=== PATIENT | female | born 2000 | race Two or more races ===

== ENCOUNTER → 2021-01-03 | Emergency (ER) | payer MEDICAID ==
[~2021-01-03] VITALS: Ht 167.6 cm; Wt 62.8 kg
[~2021-01-03] MED LIST: rabies immune globulin/PF 150 unit/ml inj IMVAC STA; rabies vaccine (PCEC)/PF 2.5 unit kit IMVAC ONE
[2021-01-03 11:45] VITALS: BP 146/91
== END | disposition home or self-care (01) ==
LOC: ER 11:18
DX: S81.851A Open bite, right lower leg, initial encounter (principal); W55.81XA Bitten by other mammals, initial encounter; Y92.009 Unspecified place in unspecified non-institutional (private) residence as the place of occurrence of the external cause; S81.831D Puncture wound without foreign body, right lower leg, subsequent encounter; Z88.0 Allergy status to penicillin; Z20.3 Contact with and (suspected) exposure to rabies
CPT/HCPCS: 90375; 90675; 99281; 99282

== ENCOUNTER 2021-01-06 15:49 | Emergency (ER) | payer MEDICAID ==
[~2021-01-06] VITALS: Ht 167.6 cm; Wt 63.6 kg
[2021-01-06 15:59] VITALS: BP 134/85
[2021-01-06] MEDS ORDERED: rabies vaccine (PCEC)/PF 2.5 unit kit IMVAC ONE (17:20)
== END 2021-01-06 17:33 | disposition home or self-care (01) ==
LOC: ER 15:50
DX: Z23 Encounter for immunization (principal); Z88.0 Allergy status to penicillin
CPT/HCPCS: 90471; 90675; 99281

== ENCOUNTER 2021-01-10 14:36 | Emergency (ER) | payer MEDICAID ==
[~2021-01-10] VITALS: Ht 167.6 cm; Wt 64.0 kg
[2021-01-10 14:47] VITALS: BP 116/81
[2021-01-10] MEDS ORDERED: rabies vaccine (PCEC)/PF 2.5 unit kit IMVAC ONE (15:10)
== END 2021-01-10 16:18 | disposition home or self-care (01) ==
LOC: ER 14:36
DX: S81.831D Puncture wound without foreign body, right lower leg, subsequent encounter (principal); Z23 Encounter for immunization; Z20.3 Contact with and (suspected) exposure to rabies; Z88.0 Allergy status to penicillin; W57.XXXD Bitten or stung by nonvenomous insect and other nonvenomous arthropods, subsequent encounter
CPT/HCPCS: 90471; 90675; 99283

== ENCOUNTER 2021-01-17 18:17 | Emergency (ER) | payer MEDICAID ==
[~2021-01-17] VITALS: Ht 167.6 cm; Wt 65.1 kg
[2021-01-17] MEDS ORDERED: rabies vaccine (PCEC)/PF 2.5 unit kit IMVAC ONE (20:45)
[2021-01-17 22:20] VITALS: BP 138/92
== END 2021-01-17 21:07 | disposition home or self-care (01) ==
LOC: ER 18:17
DX: Z23 Encounter for immunization (principal); Z88.0 Allergy status to penicillin
CPT/HCPCS: 90471; 90675; 99281; 99283

== ENCOUNTER 2021-04-18 17:59 | Emergency (ER) | payer MEDICAID ==
[~2021-04-18] VITALS: Ht 167.6 cm; Wt 65.9 kg
[2021-04-18 18:06] VITALS: BP 138/94
[2021-04-18] MEDS ORDERED: METH4TAB3 PO (18:10)
[2021-04-18] MEDS ORDERED: NAPR-56 PO (18:10)
[2021-04-18] MEDS ORDERED: ONDA4TAB6 PO (18:10)
[2021-04-18] MEDS ORDERED: DOXY100C76 PO (18:10)
== END 2021-04-18 18:14 | disposition home or self-care (01) ==
LOC: ER 17:59
DX: K08.89 Other specified disorders of teeth and supporting structures (principal); J02.9 Acute pharyngitis, unspecified; R11.0 Nausea; N95.1 Menopausal and female climacteric states; Z88.0 Allergy status to penicillin; Z79.2 Long term (current) use of antibiotics; Z79.899 Other long term (current) drug therapy; K02.9 Dental caries, unspecified
CPT/HCPCS: 99283

== ENCOUNTER 2021-07-30 17:53 | Emergency (ER) | payer MEDICAID ==
[~2021-07-30] VITALS: Ht 167.6 cm; Wt 63.6 kg
[~2021-07-30 17:53] MED LIST changes: +METH4TAB3 PO; +ONDA4TAB6 PO; -rabies immune globulin/PF 150 unit/ml inj IMVAC STA; -rabies vaccine (PCEC)/PF 2.5 unit kit IMVAC ONE
[2021-07-30 19:00] LABS: URINE HCG NEGATIVE (NEG)
[2021-07-30 19:01] LABS: COLOR,URINE YELLOW (Yellow); GLUCOSE, URINE NEGATIVE (Neg); KETONES,URINE NEGATIVE (Neg); LEUKOCYTE ESTERASE ,URINE MODERATE (Neg); NITRITES, URINE NEGATIVE (Neg); OCCULT BLOOD,URINE TRACE-INTACT (Neg); PROTEIN,URINE NEGATIVE (Neg); UROBILINOGEN,URINE 0.2 E.U/dL (0.2-1.0)
[2021-07-30 19:17] LABS: CLARITY,URINE SLIGHTLY CLOUDY (Clear); UA COLLECTION TYPE VOIDED
[2021-07-30 19:18] LABS: BACTERIA,URINE FEW /HPF (Neg); RBC,URINE 0-2 /HPF (0-2); SQUAMOUS EPITHELIAL CELL,UR FEW /LPF (FEW); WBC,URINE 20-30 /HPF (0-4)
[2021-07-31] MEDS ORDERED: ibuprofen 200mg tablet PO ONE (01:30)
[2021-07-31] MEDS ORDERED: fluconazole 150mg tablet PO ONE (01:30)
[2021-07-31] MEDS ORDERED: VALA10002 PO (01:36)
[2021-07-31 01:50] VITALS: BP 120/82
== END 2021-07-31 01:53 | disposition home or self-care (01) ==
LOC: ER 17:54
DX: B37.3 Candidiasis of vulva and vagina (principal); L98.498 Non-pressure chronic ulcer of skin of other sites with other specified severity; I10 Essential (primary) hypertension
CPT/HCPCS: 36415; 81001; 81025; 87088; 87210; 87491; 87591; 99284; Q0112

== ENCOUNTER 2023-01-03 12:36 | Emergency (ER) | payer MEDICAID ==
[~2023-01-03] VITALS: Ht 167.6 cm; Wt 84.1 kg
[~2023-01-03 12:36] MED LIST changes: +VALA10002 PO
[2023-01-03 12:38] VITALS: BP 146/94; PULSE 84; RESP 16; TEMP 98.7; O2SAT 99
--- NOTE | 2023-01-03 12:52 | NUR ---
PT PRESENTS TO THE ER FOR RLQ PAIN. PT STATES LBM THIS MORNING AND NORMAL. PT REPORTS PAIN ONLY PRESENT FOR STANDING UP OR SITTING DOWN. AT REST PAIN 0/10, WHEN MOVING 7/10. PT REPORTS VOMITING THIS MORNING BUT STATES " I WAS ALSO HUNG[place] SO I THINK IT WAS THAT"
== END 2023-01-03 18:19 | disposition left against medical advice (07) ==
LOC: ER 12:37
DX: R10.9 Unspecified abdominal pain (principal); Z53.21 Procedure and treatment not carried out due to patient leaving prior to being seen by health care provider
CPT/HCPCS: 99281

== ENCOUNTER 2023-04-05 13:59 | Emergency (ER) | payer MEDICAID ==
[~2023-04-05] VITALS: Ht 167.6 cm; Wt 88.9 kg
[2023-04-05] MEDS ORDERED: normal saline 1000ML IV soln IV ONE (14:50)
[2023-04-05 14:57] LABS: BASOPHILS % (AUTO) 0.3 % (0-1); EOSINOPHILS % (AUTO) 0.5 % (0-6); HEMATOCRIT 42.5 % (35.0-45.0); HEMOGLOBIN 14.5 g/dl (12.0-16.0); LYMPHOCYTES # (AUTO) 1.6 X10'3 (1.1-4.8); LYMPHOCYTES % (AUTO) 17.4 % (21-51); MEAN CORPUSCULAR HGB CONC 34.2 g/dL (33.0-36.5); MEAN CORPUSCULAR VOLUME 93.7 FL (78-98); MONOCYTES # (AUTO) 0.5 X10'3 (0-0.9); MONOCYTES % (AUTO) 5.7 % (2-12); NEUTROPHILS % (AUTO) 76.1 % (42-75); PLATELET COUNT 243 X10'3 (140-440); RED BLOOD COUNT 4.54 X10'6 (4.20-5.60); RED CELL DISTRIBUTION WIDTH 12.3 % (11.5-14.5); WHITE BLOOD COUNT 9.2 X10'3 (4.5-11.0)
[2023-04-05 15:12] LABS: ALANINE AMINOTRANSFERASE 28 U/L (12-78); ALBUMIN 4.2 G/DL (3.4-5.0); ALKALINE PHOSPHATASE 68 IU/L (46-116); ANION GAP 9 (8-16); ASPARTATE AMINO TRANSFERASE 15 U/L (10-37); BILIRUBIN,TOTAL 0.8 MG/DL (0.1-1.0); BLOOD UREA NITROGEN 7 MG/DL (7-18); BUN/CREATININE RATIO 9.1 (10.0-20.0); CALCIUM 9.2 MG/DL (8.5-10.1); CHLORIDE 103 MMOL/L (99-107); CREATININE 0.77 MG/DL (0.40-0.90); GLUCOSE 99 MG/DL (70-104); LIPASE 28 U/L (16-77); POTASSIUM 4.3 MMOL/L (3.5-5.1); SODIUM 137 MMOL/L (135-145); TOTAL CARBON DIOXIDE 25.5 MMOL/L (24-32); TOTAL PROTEIN 8.3 G/DL (6.4-8.2); eCRCL 105 ML/MIN; eGFR > 90 ML/MIN
[2023-04-05 15:24] LABS: BILIRUBIN,URINE NEGATIVE (Neg); CLARITY,URINE SLIGHTLY CLOUDY (Clear); COLOR,URINE YELLOW (Yellow); GLUCOSE, URINE NEGATIVE (Neg); KETONES,URINE NEGATIVE (Neg); LEUKOCYTE ESTERASE ,URINE NEGATIVE (Neg); NITRITES, URINE NEGATIVE (Neg); OCCULT BLOOD,URINE NEGATIVE (Neg); PH,URINE 6.5 (4.8-8.0); PROTEIN,URINE NEGATIVE (Neg); UROBILINOGEN,URINE 0.2 E.U/dL (0.2-1.0)
[2023-04-05 15:26] LABS: URINE HCG NEGATIVE (NEG)
[2023-04-05 15:31] LABS: UA COLLECTION TYPE CLN CATCH MIDSTREAM
[2023-04-05 15:32] LABS: BACTERIA,URINE 1+ /HPF (Neg); MUCUS STRANDS FEW /LPF (Neg); RBC,URINE 0-2 /HPF (0-2); SQUAMOUS EPITHELIAL CELL,UR MODERATE /LPF (FEW); WBC,URINE 0-4 /HPF (0-4)
[2023-04-05 16:31] LABS: PROTHROMBIN TIME 10.3 SECONDS (9.0-12.0)
[2023-04-05 17:12] VITALS: BP 143/74; PULSE 66; RESP 18; TEMP 98.3; O2SAT 99
== END 2023-04-05 17:17 | disposition home or self-care (01) ==
LOC: ER 14:02
DX: K62.5 Hemorrhage of anus and rectum (principal); R10.30 Lower abdominal pain, unspecified; I10 Essential (primary) hypertension; Z88.0 Allergy status to penicillin; Z79.899 Other long term (current) drug therapy
CPT/HCPCS: 36415; 74176; 80053; 81001; 81025; 82140; 83690; 85025; 85610; 86885; 86900; 86901; 99284

== ENCOUNTER 2024-04-13 14:01 | Emergency (ER) | payer MEDICAID ==
[~2024-04-13] VITALS: Ht 167.6 cm; Wt 90.2 kg
[2024-04-13 14:25] VITALS: BP 150/82; PULSE 80; RESP 18; TEMP 98.1; O2SAT 98
[2024-04-13] MEDS: acetaminophen 325mg tablet PO ONE (15:00)
== END 2024-04-13 15:05 | disposition home or self-care (01) ==
LOC: ER 14:02
DX: S00.03XA Contusion of scalp, initial encounter (principal); I10 Essential (primary) hypertension; F10.90 Alcohol use, unspecified, uncomplicated; Z88.0 Allergy status to penicillin; Z79.899 Other long term (current) drug therapy; X58.XXXA Exposure to other specified factors, initial encounter; Y93.89 Activity, other specified; Y92.89 Other specified places as the place of occurrence of the external cause; Y99.8 Other external cause status
CPT/HCPCS: 99282

== ENCOUNTER 2024-12-15 14:46 | Emergency (ER) | payer MEDICAID ==
[~2024-12-15] VITALS: Ht 167.6 cm; Wt 92.0 kg
[2024-12-15 16:18] LABS: MEAN PLATELET VOLUME 9.7 FL (7.4-10.4); RED CELL DISTRIBUTION WIDTH 12.3 % (11.5-14.5)
[2024-12-15 16:33] LABS: CREATININE 0.89 MG/DL (0.40-0.90); TOTAL CARBON DIOXIDE 27.0 MMOL/L (24-32); eCRCL 90 ML/MIN; eGFR 77 ML/MIN
--- NOTE | 2024-12-15 18:27 | Physician Documentation ---
History of Present Illness Chief Complaint: Bloody Emesis Stated Complaint: VOMITING BLOOD Primary Medical Doctor: [facility] HPI Patient is a 24-year-old presents to the emergency department for evaluation of abdominal pain and small amount of blood in emesis. Patient reports that they are being treated for GERD sometimes have episodes of vomiting. Patient reports he had been being treated for GERD for the past 4 months during this for months they have occasional vomiting presents with a scant amount of blood in the vomit. Denies any abdominal pain chest pain shortness of breath blood in urine or stool. Patient denies fevers chills shortness of breath lightheadedness or any other symptoms at this time. Medication Reconciliation Allergies: Coded Allergies: Penicillins (Verified Allergy, Unknown, 04/13/24) Scheduled Methylprednisolone (Medrol), 1 DOSPAK PO UD Ondansetron Hcl (Zofran), 1 TAB PO Q6H Valacyclovir HCl (Valtrex), 1 TAB PO Q12H Past Medical History Past Medical History: Hypertension, *HEMATOLOGY* Past Surgical History: no surgical history Alcohol Use: Heavy Drug Use: none Lives with: Family Lives In: Home Review of Systems ROS As stated above in the HPI, otherwise all systems are reviewed and negative. Physical Exam Vital Signs: Temperature: 98.0, Source: Temporal, Heart Rate: 92, Respiratory Rate: 16, BP: 153/94, Pulse Oximetry: 100, Weight: 92.000 Oxygen Flow Rate: 0 Physical Exam VITALS: Reviewed and as above. GENERAL: Alert, no apparent distress. HEENT: Normocephalic, atraumatic, PERRL, EOMI, dry mucosa, no erythema RESPIRATORY: Lungs clear, normal breath sounds, no respiratory distress. CHEST: No accessory muscle use, no retractions CV: Regular rate, rhythm, no edema, no murmur, No: JVD GI: Soft, non-tender, bowels sounds present, no rebound, guarding, or rigidity BACK: No CVA tenderness, or swelling MUSCULOSKELETAL No deformities, no edema SKIN: Warm and dry, no rash NEURO: Oriented x4, No motor or sensory deficit PSYCH: Normal mood and affect, no agitation Progress Results/Orders Results/Orders Vital Signs 12/15/24 15:08 Temp 98.0 Pulse 92 Resp 16 B/P (MAP) 153/94 Pulse Ox 100 O2 Flow Rate 0 Laboratory Tests Test 12/15/24 15:44 White Blood Count 10.8 Red Blood Count 4.61 Hemoglobin 15.0 Hematocrit 43.2 Mean Corpuscular Volume 93.8 Mean Corpuscular Hemoglobin 32.5 H Mean Corpuscular Hemoglobin Concent 34.6 Red Cell Distribution Width 12.3 Platelet Count 214 Mean Platelet Volume 9.7 Neutrophils (%) (Auto) 75.0 Lymphocytes (%) (Auto) 17.9 L Monocytes (%) (Auto) 5.3 Eosinophils (%) (Auto) 1.3 Basophils (%) (Auto) 0.5 Neutrophils # (Auto) 8.1 H Lymphocytes # (Auto) 1.9 Monocytes # (Auto) 0.6 Eosinophils # (Auto) 0.1 Basophils # (Auto) 0.1 CBC Comment Sodium Level 137 Potassium Level 4.2 Chloride Level 102 Carbon Dioxide Level 27.0 Anion Gap 8 Blood Urea Nitrogen 6 L Creatinine 0.89 Estimated GFR/1.73 m2 77 BUN/Creatinine Ratio 6.7 L Glucose Level 96 Calcium Level 9.1 Total Bilirubin 1.2 H Aspartate Amino Transf (AST/SGOT) 26 Alanine Aminotransferase (ALT/SGPT) 75 Alkaline Phosphatase 91 Total Protein 7.9 Albumin 4.2 Globulin 3.7 Albumin/Globulin Ratio 1.1 Lipase 34 Chemistry Comments Medical Decision Making Findings Patient presents with occasional abdominal pain with scant bloody emesis. Patient with new diagnosis of GERD x4 months. Abdominal exam without peritoneal signs. No evidence of acute abdomen at this time. Well appearing. Given work up low suspicion for acute hepatobiliary disease (including acute cholecystitis), acute pancreatitis (neg lipase), PUD and gastric perforation, acute infectious processes (pneumonia, hepatitis, pyelonephritis), acute appendicitis, vascular catastrophe, bowel obstruction or viscus perforation, diverticulitis. Presentation not consistent with other acute, emergent causes of abdominal pain at this time. Patient reports 1 episode of emesis with scant amount of blood in 1 week. Patient reports pain is only when experiencing symptoms of GERD. Patient will follow up with primary care provider. Patient will return to the e mergency department if any worsening or recurrent symptoms or any additional concerning symptoms i.e. additional blood increased pain abdominal distention blood in urine or emesis fever chills or any other concerning symptoms. Differential Dx:Considerations: Include: AAA, -Complete, - Incomplete, -Inevitable, -Missed, -Threatened, Abruptio placentae, Angina/MO, Aortic dissection, Appendicitis, Bowel obstruction, Cholangitis, Cholelithasis, Constipation, Diverticular disease, Esophageal rupture, Esophagitis, Gastritis/PUD, Gastroenteritis, GI hemorrhage, Hernia, Hepatitis, Inflammatory BD, Ischemic bowel, Ovarian cyst/torsion, Pancreatitis, PID, Porphyria, Trauma, intraabdominal, Urinary obstruction, Urinary tract infection, Urolithiasis, Other Departure Disposition: HOME / SELF CARE / HOMELESS Impression: Primary Impression: GERD (gastroesophageal reflux disease) Additional Impression: Abdominal pain Condition: Stable Discharge Instructions: Food Choices for Gastroesophageal Reflux Disease, Adult Additional Instructions: Patient presents with occasional abdominal pain with scant bloody emesis. Patient with new diagnosis of GERD x4 months. Abdominal exam without peritoneal signs. No evidence of acute abdomen at this time. Well appearing. Given work up low suspicion for acute hepatobiliary disease (including acute cholecystitis), acute pancreatitis (neg lipase), PUD and gastric perforation, acute infectious processes (pneumonia, hepatitis, pyelonephritis), acute appendicitis, vascular catastrophe, bowel obstruction or viscus perforation, diverticulitis. Presentation not consistent with other acute, emergent causes of abdominal pain at this time. Patient reports 1 episode of emesis with scant amount of blood in 1 week. Patient reports pain is only when experiencing symptoms of GERD. Patient will follow up with primary care provider. Patient will return to the emergency department if any worsening or recurrent symptoms or any additional concerning symptoms i.e. additional blood increased pain abdominal distention blood in urine or emesis fever chills or any other concerning symptoms. Referrals: NO PRIMARY CARE PROVIDER (PCP) Education Educated: Patient Educated regarding: diagnosis, treatment, need for follow up Signature Scribe Signature: A Attestation: Scribed for Emergency,Department by MARC Bryant . 12/15/24 18:32 ARCHIE ROTH Dec 15, 2024 18:27
[2024-12-15 19:10] VITALS: BP 145/83; PULSE 64; RESP 16; TEMP 99; O2SAT 98
== END 2024-12-15 19:13 | disposition home or self-care (01) ==
LOC: ER 14:46
DX: K21.9 Gastro-esophageal reflux disease without esophagitis (principal); I10 Essential (primary) hypertension; Z88.0 Allergy status to penicillin; Z79.899 Other long term (current) drug therapy
CPT/HCPCS: 36415; 80053; 83690; 85025; 99283